=== PATIENT | female | born 1960 | race Caucasian/White ===

== ENCOUNTER → 2017-05-21 | Outpatient (CLI) | payer OTHER | LOC: MAMMO 15:44 | PROVIDERS: ATTEND Family Medicine | DX: Z12.31 Encounter for screening mammogram for malignant neoplasm of breast (principal) | CPT/HCPCS: G0202; G0279 ==

== ENCOUNTER → 2020-12-05 | Outpatient (CLI) | payer MEDICARE, MEDICAID | LOC: GMALP 12:36 | PROVIDERS: ATTEND Family Medicine | DX: R53.83 Other fatigue (principal); Z79.899 Other long term (current) drug therapy ==